=== PATIENT | female | born 1990 | race Caucasian/White ===

== ENCOUNTER 2019-10-16 07:34 | Observation (INO) | payer OTHER, SELFPAY ==
[2019-10-16] VITALS (26 sets, daily range): BP systolic 109–121; BP diastolic 71–74; PULSE 78–103; O2SAT 97–100; BMI 49.1
--- NOTE | 2019-10-16 07:52 | OBADM ---
This patient, Enma Pan, admitted to the OB room OB Post 115 for observation. Patient/family oriented to hospital policies and general routines including ID bracelet, bed and alarms, visiting hours, pain management, procedures, bathroom and other care routines, personal items, smoking policy, room service/diet, and visiting hours. Patient/Family are encouraged to report perceived risks to care and to ask questions if they do not understand what they are told or what they should do.
[2019-10-16] MEDS: BETAMETHASONE SOD PHOS/ACETATE 30 MG/5 ML VIAL 12 MG IM (08:12)
--- NOTE | 2019-10-16 08:20 | PC.NURSE ---
0756- Spoke with Dr. Khan regarding patient admission for observation for bleeding. Orders for terbutaline if needed for contractions and Celestone 12 mg IM once now, then once in 24 hours. Extended monitoring for a few hours.
[2019-10-16] MEDS: TERBUTALINE SULFATE 1 MG/ML VIAL 0.25 MG SUB-Q (09:32)
--- NOTE | 2019-10-16 11:25 | PC.NURSE ---
1125- Spoke with Dr. Khan, bleeding has stopped, patient just reporting pink discharge now. Contractions have decreased. patient to be discharged to home.
--- NOTE | 2019-10-21 16:37 | PM.OBTRLD ---
OB - Triage/Final Diagnosis Visit Information Comments/Additional reasons for admission: Vaginal bleeding
== END 2019-10-16 11:35 | disposition home or self-care (01) ==
PROVIDERS: Admitting Provider Obstetrics & Gynecology; Visit Provider Obstetrics & Gynecology
DX: O44.13 Complete placenta previa with hemorrhage, third trimester (principal); Z3A.33 33 weeks gestation of pregnancy
CPT/HCPCS: 96372; G0378; G0379; J0702; J3105

== ENCOUNTER 2019-10-17 07:50 | Outpatient (CLI) | payer OTHER, SELFPAY ==
[2019-10-17] MEDS: BETAMETHASONE SOD PHOS/ACETATE 30 MG/5 ML VIAL 12 MG IM (08:12)
== END 2019-10-17 08:15 | disposition home or self-care (01) ==
LOC: ANHOBOP 07:55 → ANHLDR 07:55
PROVIDERS: Visit Provider Obstetrics & Gynecology
DX: Z34.90 Encounter for supervision of normal pregnancy, unspecified, unspecified trimester (principal); Z3A.00 Weeks of gestation of pregnancy not specified
CPT/HCPCS: 96372; 99199; J0702

== ENCOUNTER 2019-10-19 10:33 | Observation (INO) | payer OTHER, SELFPAY ==
[2019-10-19] VITALS (9 sets, daily range): BP systolic 112–131; BP diastolic 61–68; PULSE 85–96; TEMP 36.3; BMI 47.6
--- NOTE | ~2019-10-19 | US_ITS ---
EXAMINATION: US OB limited w BPP DATE: 10/19/2019 11:44 INDICATION: Vaginal bleeding. Third trimester. TECHNIQUE: Real-time pelvic ultrasound was performed. COMPARISON: None. FINDINGS: There is a single living fetus in vertex presentation. The placenta covers the internal cervical os. heart rate is 165 beats per minute (bpm). Biophysical profile performed by the technologist: breathing (30 sec sustained breathing in 30 minutes): 2 out of 2 movement (3 gross body movements in 30 minutes): 2 out of 2 tone (one episode of ctzhduk-ehsaahtnm-anrnata limb movement): 2 out of 2 Amniotic fluid pocket (2 cm): 2 out of 2 Total score: 8 out of 8 IMPRESSION: 1. Placenta previa. 2. Single living fetus in vertex presentation. 3. Biophysical profile 8 out of 8. Reviewed, dictated and finalized at location B.
--- NOTE | 2019-10-19 11:01 | OBADM ---
This patient, Enma Pan, admitted to the OB room OB Post 115 for observation. Patient/family oriented to hospital policies and general routines including ID bracelet, bed and alarms, visiting hours, pain management, procedures, bathroom and other care routines, personal items, smoking policy, room service/diet, and visiting hours. Patient/Family are encouraged to report perceived risks to care and to ask questions if they do not understand what they are told or what they should do. Pt. reports vaginal blood noted after going to the bathroom this a.m., states she has a placenta previa and received steroids X2 doses on Wednesday and Wednesday this week. She denies any ctxns and reports movement at this time. Small amount of dark bloody mucus noted upon wiping after using the BR, will continue to monitor.
[2019-10-19] MEDS: TERBUTALINE SULFATE 1 MG/ML VIAL 0.25 MG SUB-Q (11:25)
--- NOTE | 2019-10-19 14:26 | PM.OBTRLD ---
OB - Triage/Final Diagnosis Visit Information Comments/Additional reasons for admission: 29-year-old 2 para 1001 at 34 weeks gestation presents with 2nd episode of minimal vaginal bleeding due to placenta previa this week. Her last visit she was given steroids which she repeated 24 hours later. Has had limited activity at home and had some bright red bleeding today which has resolved by the time she presented to the hospital. Did have an ultrasound which showed no placental abruption and confirming placenta previa as well as a biophysical profile which was 8/8. Patient has no other complaints or concerns at this time. Evaluation Vital signs: Vital Signs - 24 hr 10/19/19 10:43 10/19/19 10:45 10/19/19 11:01 Temperature 36.3 C L Pulse Rate 89 85 Blood Pressure 131/65 112/68 10/19/19 11:16 10/19/19 11:55 10/19/19 12:01 Temperature Pulse Rate 87 89 91 Blood Pressure 123/63 119/66 118/63 10/19/19 12:16 10/19/19 12:31 10/19/19 12:46 Temperature Pulse Rate 89 96 87 Blood Pressure 119/61 117/66 117/65 Comments: Patient will be discharged home with same precautions as previous. She has has an ultrasound scheduled for Wednesday and a follow-up appointment next week in the office. She is return for any significant bleeding and/or contractions prior to that.
--- NOTE | 2019-10-19 14:30 | PM.OBTRLD ---
OB - Triage/Final Diagnosis Visit Information Comments/Additional reasons for admission: Vaginal bleeding Evaluation Vital signs: Vital Signs - 24 hr 10/19/19 10:43 10/19/19 10:45 10/19/19 11:01 Temperature 36.3 C L Pulse Rate 89 85 Blood Pressure 131/65 112/68 10/19/19 11:16 10/19/19 11:55 10/19/19 12:01 Temperature Pulse Rate 87 89 91 Blood Pressure 123/63 119/66 118/63 10/19/19 12:16 10/19/19 12:31 10/19/19 12:46 Temperature Pulse Rate 89 96 87 Blood Pressure 119/61 117/66 117/65
== END 2019-10-19 14:46 | disposition home or self-care (01) ==
PROVIDERS: Admitting Provider Obstetrics & Gynecology; Visit Provider Obstetrics & Gynecology
DX: O44.03 Complete placenta previa NOS or without hemorrhage, third trimester (principal); O26.853 Spotting complicating pregnancy, third trimester; Z3A.34 34 weeks gestation of pregnancy
CPT/HCPCS: 76815; 76819; 96372; G0378; G0379; J3105

== ENCOUNTER 2019-10-21 18:34 | Observation (INO) | payer OTHER, SELFPAY ==
[2019-10-21 19:00] VITALS: TEMP 36.6
[2019-10-21 19:30] VITALS: BMI 47.6
--- NOTE | 2019-10-21 22:06 | LDADM ---
This patient, Enma Pan, was admitted to Labor/Delivery/Recovery 120 on 10/21/19 at 18:34. Plans for labor, pain management and were discussed with patient. Patient/family oriented to hospital policies and general routines including ID bracelet, bed and alarms, visiting hours, pain management, procedures, bathroom and other care routines, personal items, smoking policy, room service/diet and guest tray routines, security routines, and visiting hours. Patient/Family are encouraged to report perceived risks to care and to ask questions if they do not understand what they are told or what they should do. See OBIX for further documentation.
--- NOTE | 2019-10-21 22:08 | PC.NURSE ---
1833- pt c/o contractions- 4-6 in last hour. pt with current placenta previa. pt feeling baby move. no vaginal bleeding. 2014- paged Dr. Khan 2016- Dr. Khan returned page. updated on pt status. have pt take her dose of procardia 10mg now, will monitor and if no contractions felt/noted pt may d/c home. if pt continues to have contractions order received to give up to 2 doses of terbutaline if needed. if continues to have contractions call Dr. Khan for further instructions. 2024 pt took procardia 10mg po. 2129- pt not feeling contractions since taking procardia. pt wanting to d/c home.
--- NOTE | 2019-11-06 07:14 | PM.OBTRLD ---
OB - Triage/Final Diagnosis Visit Information Comments/Additional reasons for admission: Vaginal bleeding due to placenta previa (see related condition) a
== END 2019-10-21 22:05 | disposition home or self-care (01) ==
PROVIDERS: Admitting Provider Obstetrics & Gynecology; Visit Provider Obstetrics & Gynecology
DX: O44.13 Complete placenta previa with hemorrhage, third trimester (principal); Z3A.34 34 weeks gestation of pregnancy
CPT/HCPCS: G0378; G0379

== ENCOUNTER 2019-10-26 16:55 | Observation (INO) | payer OTHER, SELFPAY ==
[2019-10-26 17:22] VITALS: TEMP 36.6
[2019-10-26 18:01] VITALS: BP 112/69; PULSE 101
[2019-10-26 18:17] VITALS: BMI 47.6
--- NOTE | 2019-10-26 18:18 | OBADM ---
This patient, Enma Pan, admitted to the OB room Labor/Delivery/Recovery 120 for observation. Patient/family oriented to hospital policies and general routines including ID bracelet, bed and alarms, visiting hours, pain management, procedures, bathroom and other care routines, personal items, smoking policy, room service/diet, and visiting hours. Patient/Family are encouraged to report perceived risks to care and to ask questions if they do not understand what they are told or what they should do.
[2019-10-26] MEDS: LACTATED RINGERS 1,000 ML 999 ML IV CONT (18:37)
[2019-10-26] MEDS: LACTATED RINGERS 1,000 ML 150 ML IV CONT (19:40)
[2019-10-26] MEDS: NIFEdipine 10 MG CAPSULE PO (19:48)
--- NOTE | 2019-10-27 14:25 | PM.OBTRLD ---
OB - Triage/Final Diagnosis Evaluation Vital signs: Vital Signs - 24 hr 10/26/19 17:22 10/26/19 18:01 Temperature 36.6 C Pulse Rate 101 H Blood Pressure 112/69 Final Diagnosis (1) Vagina bleeding: Code(s): N93.9 - Abnormal uterine and vaginal bleeding, unspecified Status: Acute
== END 2019-10-26 22:30 | disposition home or self-care (01) ==
PROVIDERS: Admitting Provider Obstetrics & Gynecology; Visit Provider Obstetrics & Gynecology
DX: O26.859 Spotting complicating pregnancy, unspecified trimester (principal); Z3A.00 Weeks of gestation of pregnancy not specified
CPT/HCPCS: 96360; 96361; A9270; G0378; G0379; J7120

== ENCOUNTER 2019-10-31 16:20 | Outpatient (CLI) | payer OTHER, SELFPAY ==
[2019-10-31 17:16] LABS: Hematocrit 39.6 % (37.0-47.0); Hemoglobin 13.5 g/dL (12.0-15.0); Mean Corpuscular HGB Conc 34.1 g/dl (32-36); Mean Corpuscular Hemoglobin 29.2 pg (26-34); Mean Corpuscular Volume 85.7 fl (80-100); Mean Platelet Volume 11.8 fl (7.4-10.4); Platelet Count Result 267 k/mm3 (150-375); Red Blood Count 4.62 M/mm3 (4.2-5.4); Red Cell Distribution Width 13.2 % (11.5-14.5); White Blood Count 11.3 K/mm3 (4.5-10.0)
[2019-11-01 10:03] LABS: Rapid Plasma Reagin Non-Reactive (NonReactive)
== END 2019-10-31 16:21 | disposition home or self-care (01) ==
LOC: ANHLAB 16:22
PROVIDERS: Visit Provider Obstetrics & Gynecology
DX: Z34.93 Encounter for supervision of normal pregnancy, unspecified, third trimester (principal); Z3A.00 Weeks of gestation of pregnancy not specified
CPT/HCPCS: 36415; 85027; 86592; 86850; 86900; 86901

== ENCOUNTER 2019-11-01 09:53 | Inpatient (IN) | payer OTHER, SELFPAY ==
[2019-11-01] VITALS (54 sets, daily range): BP systolic 90–135; BP diastolic 17–84; PULSE 60–101; RESP 16–20; TEMP 36.1–36.6; O2SAT 97–100; BMI 47.7
--- NOTE | 2019-11-01 07:22 | PM.IMHP ---
H&P: HPI History of Present Illness Date/Time: 11/01/19 07:22 Chief complaint: Pre-admit Narrative: Enma Pan is a 29 year old female 3 para 2001 presents for repeat section. Also complicating this placenta previa which has caused 3 outpatient admissions in the last week due to small episodes of bleeding. Also has received steroids for lung maturation approximately 2 weeks ago. Desires permanent sterilization as well. Review of Systems Review of Systems: All systems reviewed & are unremarkable except as noted in HPI and below PMFSH Family History Family History Mother Colon cancer Social History Social History Substance use: never Gender identity (if verbalized by the patient): Female Spiritual care concerns: No Meds Home Medications and Allergies Home Medications Medication Instructions Recorded Confirmed Type Daily 1 pkg PO DAILY 10/16/19 10/26/19 History nifedipine [Procardia] 10 mg PO Q8H #30 cap 10/19/19 10/26/19 Rx Allergies Allergy/AdvReac Type Severity Reaction Status Date / Time egg AdvReac Unknown N&V Verified 10/16/19 08:00 Exam Const: General: no acute distress Resp: Auscultation: clear to auscultation bilaterally Cardio: Rate: regular rate Rhythm: regular rhythm GI: GI Palp: Yes Soft to palpation Other: Fundal height 36cm heart tones 140 Assessment and Plan Assessment and plan (1) 36 weeks gestation of : Code(s): Z3A.36 - 36 weeks gestation of Status: Acute (2) Placenta previa: Code(s): O44.00 - Complete placenta previa NOS or without hemorrhage, unspecified trimester Status: Acute (3) Encounter for female sterilization procedure: Code(s): Z30.2 - Encounter for sterilization Status: Acute Additional Plan 1. Proceed with repeat low-transverse section 2.bilateral tubal ligation
--- NOTE | 2019-11-01 07:25 | WPDHPUPDATE1 ---
History and Physical Update Update Date/Time: 11/01/19 07:25 History and Physical has been reviewed, including an updated exam of the patient. There are NO changes in the patient's condition. Risks, benefits, and alternatives have been discussed and questions answered. Patient agrees to proceed with procedure.
--- NOTE | 2019-11-01 10:47 | WPDANESEPPF ---
Anes - Initial Pre Proc Eval Procedure: Operation Date: 11/01/19 12:00 Proposed Procedures p Repeat Section With Bilateral Tubal Ligation - Carlton Khan MD Date/Time: 11/01/19 10:47 Surgeon: Carlton Khan MD Pre Op Diagnosis: C/S Patient Data Age: 29 Gender: F Height: 5 ft 3 in Weight: 122.4 kg Last Vital Signs Pulse 94 11/01/19 10:32 BP 101/65 11/01/19 10:32 Allergies Allergy/AdvReac Type Severity Reaction Status Date / Time egg AdvReac Unknown N&V Verified 10/16/19 08:00 Home Medications Medication Instructions Recorded Confirmed Type Daily 1 pkg PO DAILY 10/16/19 10/26/19 History nifedipine [Procardia] 10 mg PO Q8H #30 cap 10/19/19 10/26/19 Rx Patient hx anesthesia problems: post op nausea/vomiting Family hx anesthesia problems: none PMFSH Past Medical History Medical History (Updated 11/01/19 @ 10:47 by Trev Stephens MD) Asthma Family History Family History Mother Colon cancer Social History Social History Substance use: never Gender identity (if verbalized by the patient): Female Spiritual care concerns: No Anes - Eval Final PreProcedure Day of Procedure 11/01/19 10:47 Patient weight: morbidly obese Heart: regular rate and rhythm Lungs: clear to auscultation Airway: Mallampati scale class II Neurological: alert and oriented Last oral intake: >/= 8 hours ASA classification: III Emergent: no Anesthetic plan: proceed Anesthesia type and monitoring: regional spinal and standard monitoring Informed Consent: The patient's anesthetic plan and its attendant risks and benefits were discussed with the patient/family/POA. Questions were solicited and answers provided to the satisfaction of the patient/family/POA.
[2019-11-01] MEDS: LACTATED RINGERS 250 ML IVPB (10:57)
--- NOTE | 2019-11-01 11:12 | LDADM ---
This patient, Enma Pan, was admitted to Labor/Delivery/Recovery 119 on 11/01/19 at 09:53. Plans for labor, pain management and were discussed with patient. Patient/family oriented to hospital policies and general routines including ID bracelet, bed and alarms, visiting hours, pain management, procedures, bathroom and other care routines, personal items, smoking policy, room service/diet and guest tray routines, security routines, and visiting hours. Patient/Family are encouraged to report perceived risks to care and to ask questions if they do not understand what they are told or what they should do. See OBIX for further documentation.
[2019-11-01] MEDS: LACTATED RINGERS 1,000 ML 125 ML IV CONT (11:21)
[2019-11-01] MEDS: ceFAZolin 3 GM/D5W 100 ML 100 ML IVPB (11:21)
--- NOTE | 2019-11-01 12:51 | PM.OBPRVD ---
OB - Delivery Note Procedure Procedure: Procedures Operation Date: 11/01/19 12:00 <No data on this case meets the specified criteria> Intrapartal events: Placenta Previa Route of delivery: (with bilateral tubal ligation) Specimen: Yes (1. Placenta 2. Bilateral fallopian tubes) Estimated blood loss (mL): 1,000 Anesthesia type: Epidural Disposition: PACU Narrative: patient prepped and draped in usual manner for this procedure. Pfannenstiel incision was made which was then carried down to the fascia which was extended bilaterally the length of the skin incision. Superiorly and inferiorly dissected away from the rectus muscles which were then bluntly dissected and peritoneum was entered. Bladder flap was developed. Uterus scored with clear fluid noted. Extended bilaterally the length of the lower segment and the vertex was delivered without difficulty. Rest of baby was delivered. Placenta was manually removed. There were no fragments or clots in the uterus though there was a minor amount of bleeding from the lower segment where the placenta had been attached. Pressure was placed in this area and bilaterally the tubes were then removed by double ligated with 0 plain suture and removing the stump of tissue. Year the uterus was then closed using 0 Monocryl in a running interlocking manner with good approximation hemostasis noted. Uterus was turned to the abdomen and the tubes were noted to be intact and hemostatic and the uterine incision also intact and hemostatic. All subfascial tissue was noted be hemostatic and the fascia was approximated using 0 Vicryl suture from the left angle midline and in the right angle to midline with good approximation hemostasis noted. Subcutaneous tissue was approximated using 0 plain suture in a running manner and the skin was then approximated using wide dannie. Patient are procedure well sent to recovery room in stable condition. Baby Weeks of gestation at delivery: 36 Infant gender: Female Weight (pounds): 6 Weight (ounces): 14
[2019-11-01] MEDS: MORPHINE SULFATE 2 MG/ML INJ 3 MG IV PUSH ×2 (13:55→14:21)
[2019-11-01] MEDS: OXYTOCIN 30 UNITS/NS 500 ML 30 UNITS/500 ML BAG 125 UNITS IV CONT (14:00)
--- NOTE | 2019-11-01 15:28 | PC.NURSE ---
Patient transferred to post room 287 per stretcher. Support person present. Oriented to unit, room, information board, rooming in, admission packet and security measures. Patient verbalizes understanding.
[2019-11-01] MEDS: KETOROLAC 30 MG/ML VIAL (*BKC) IV PUSH (17:52)
[2019-11-01] MEDS: SIMETHICONE 80 MG TAB.CHEW PO (17:52)
[2019-11-02 01:54] LABS: Basophils Percent Auto 0.4 % (0.2-1.2); Eosinophils Absolute Auto 0.3 K/mm3 (0-0.3); Eosinophils Percent Auto 2.5 % (0-4.4); Hematocrit 34.3 % (37.0-47.0); Hemoglobin 11.4 g/dL (12.0-15.0); Immature Granulocyte Absolute 0.02 K/mm3 (0.00-0.031); Immature Granulocyte Percent A 0.2 % (0-0.5); Lymphocytes Absolute Auto 2.22 K/mm3 (0.9-3.2); Lymphocytes Percent Auto 22.2 % (18.3-44.2); Mean Corpuscular HGB Conc 33.2 g/dl (32-36); Mean Corpuscular Hemoglobin 28.9 pg (26-34); Mean Corpuscular Volume 87.1 fl (80-100); Mean Platelet Volume 12.1 fl (7.4-10.4); Monocytes Absolute Auto 0.7 K/mm3 (0.1-0.6); Monocytes Percent Auto 7.1 % (2.6-8.5); Neutrophils Absolute Auto 6.7 K/mm3 (1.3-6.7); Neutrophils Percent Auto 67.6 % (45.5-73.1); Platelet Count Result 224 k/mm3 (150-375); Red Blood Count 3.94 M/mm3 (4.2-5.4); Red Cell Distribution Width 13.2 % (11.5-14.5)
[2019-11-02 04:40] VITALS: BP 103/69; PULSE 80; RESP 16; TEMP 36.3; O2SAT 98
[2019-11-02] MEDS: KETOROLAC 30 MG/ML VIAL (*BKC) IV PUSH (04:59)
[2019-11-02] MEDS: ONDANSETRON INJ 4 MG/2 ML VIAL IV PUSH (06:09)
[2019-11-02 06:55] VITALS: BP 116/76; PULSE 84; RESP 18; TEMP 36.3; O2SAT 99
--- NOTE | 2019-11-02 08:44 | P.DS_ITS ---
DS: Admitting Diagnosis Admitting Diagnosis Admitting Diagnosis: C/S OB - DS: Summary OB Procedures : None OB Procedures Intrapartum: and Tubal ligation OB Procedures: : None Peripartum Data Procedures: Procedures Operation Date: 11/01/19 12:00 Actual Procedures Side Surgeon p Section Carlton Khan MD Time Spent with Patient Time attestation: Total time spent providing and/or coordinating discharge services: DS: Data Data Completed and Pending Pending studies at discharge: Pending at discharge 11/01/19 13:06 Surgical [PTH] Routine Labs on day of discharge: Labs from last 24 hours 11/02/19 01:46 WBC 10.0 RBC 3.94 L Hgb 11.4 L Hct 34.3 L MCV 87.1 MCH 28.9 MCHC 33.2 RDW 13.2 Plt Count 224 MPV 12.1 H Immature Gran % (Auto) 0.2 Neut % (Auto) 67.6 Lymph % (Auto) 22.2 [place] % (Auto) 7.1 Eos % (Auto) 2.5 Baso % (Auto) 0.4 Lymph # (Auto) 2.22 [place] # (Auto) 0.7 H Eos # (Auto) 0.3 Baso # (Auto) 0.0 Abs Immat Gran (auto) 0.02 Absolute Neuts (auto) 6.7 Absolute Nucleated RBC 0.0 Nucleated RBC % 0.0 Discharge Plan Discharge Discharging Clinician: Carlton Khan Patient Disposition: Home, Self-Care Activity: as tolerated Diet: as tolerated Wound Care Instructions: incision open to air Discharge Instructions: office wednesday/wednesday for staple removal Patient Instructions: Antibiotic Form Stand Alone Forms: General Discharge Information Follow-up/Referrals: Carlton Khan MD [Physician] - 3 Weeks Discharge Medications: New hydrocodone-acetaminophen 5-325 mg Tablet 1 tab PO Q3H PRN (Reason: Moderate Pain (4-6)) Qty: 30 RF: 0 ibuprofen 600 mg Tablet 600 mg PO Q6H PRN (Reason: Cramping) Qty: 30 RF: 0 Continued Daily 28-800-440 mg-mcg-mg Combo Pack 1 pkg PO DAILY RF: 0 Date of admission: 11/01/19 09:53 Primary Care Provider: PHYSICIAN,DOUBLE END CHUCKING MACHINE OPERATOR Admitting Provider: Carlton Khan Attending physician on admission: Carlton Khan
[2019-11-02] MEDS: SIMETHICONE 80 MG TAB.CHEW PO ×2 (09:04→17:05)
[2019-11-02] MEDS: MULTIVIT/MIN/PREN/FOL AC/IRON TABLET 1 TAB PO (09:04)
--- NOTE | 2019-11-02 09:34 | WPDANLDPN2 ---
Anes-Prog Note L&D Date/Time: 11/02/19 09:34 Comfortable throughout: section Neuraxial method: spinal Epidural/Spinal procedure site: clean & non-tender Neuro status: Neuro function grossly intact. Cardiovascular status: normal Respiratory status: normal Airway patency: baseline Mental status: baseline Post-Op hydration status: normal Vital Signs: Last Vital Signs Temp 36.3 C L 11/02/19 06:55 Pulse 84 11/02/19 06:55 Resp 18 11/02/19 06:55 BP 116/76 11/02/19 06:55 Pulse Ox 99 11/02/19 06:55 Pain score (VAS): 0/10 I/O: Intake & Output 11/01/19 11/02/19 11/02/19 23:59 07:59 15:59 Intake Total 200 Output Total 300 Balance -100 Post-procedural complaints: none Patient feedback: Patient satisfied with anesthetic care.
--- NOTE | 2019-11-02 09:34 | WPDANLDNPN2 ---
Anes-Prog Note L&D-Neuraxial Date/Time: 11/02/19 09:34 Neuraxial medications: intrathecal PF morphine Opiod-related complaints: none Patient feedback: Patient satisfied with post-operative pain management.
--- NOTE | 2019-11-02 11:05 | PC.NURSE ---
Consult with pt.,mother states she is pumping due to transfer. Mother has three bottles with a few mls each to take to infant. Assured mother drops with each session are normal at this time. Reviewed instructions given on breast pump care and usage, pumping schedule, nipple care, and collection and storage of breast milk. Encouraged [id number] as available, breast massage and manual expression to stimulate supply. Patient verbalizes and demonstrates understanding of instructions.
--- NOTE | 2019-11-02 11:20 | PC.NURSE ---
Pt. to [facility] to see infant with at side. Explained 6 hr. pass to pt. No questions or concerns verbalized.
[2019-11-02 11:25] VITALS: BP 110/70; PULSE 86; RESP 20; TEMP 36.8
[2019-11-02] MEDS: IBUPROFEN 600 MG TABLET PO ×2 (11:30→17:04)
--- NOTE | 2019-11-02 17:46 | PC.NURSE ---
Addendum entered by Mariana Romero RN 11/02/19 17:48: Pt. returned to hospital at 1645. Original Note: Pt. returned from visit at [facility]. at side. Very happy and excited that infant doing well.
[2019-11-02] MEDS: TETANUS,DIPHTHERIA,AC PERTUSSIS ADULT (0.5 ML) BOOSTRIX IM (19:53)
[2019-11-02 20:00] VITALS: BP 122/76; PULSE 74; RESP 16; TEMP 36.9; O2SAT 100
[2019-11-03] MEDS: SIMETHICONE 80 MG TAB.CHEW PO (01:17)
[2019-11-03] MEDS: IBUPROFEN 600 MG TABLET PO ×2 (01:17→08:46)
--- NOTE | 2019-11-03 08:30 | PC.NURSE ---
Consult with pt., mother is concerned she is pumping regularly with small amounts each session. Assured mother this is normal to continue with pumping 15 minutes every three hours, milk should transition in within a few days. Mother has a double electric pump for home use.
[2019-11-03 08:35] VITALS: BP 130/78; PULSE 80; RESP 18; TEMP 35.9; O2SAT 100
[2019-11-03] MEDS: MULTIVIT/MIN/PREN/FOL AC/IRON TABLET 1 TAB PO (08:46)
--- NOTE | 2019-11-03 08:50 | PC.NURSE ---
Pt to been seen in the office on Wednesday or Wednesday of next week for staple removal so pt declines hospital follow up appointment on Wednesday.
--- NOTE | 2019-11-03 10:25 | PC.NURSE ---
Patient received instructions to view the discharge video Mother & Baby Care, The First Two Weeks . Patient was given the opportunity and encouraged to ask questions. Patient verbalized understanding of information shared and has been given the mother/baby guide for home reference.
--- NOTE | 2019-11-04 08:06 | PM.OBDSVD ---
DS: Admitting Diagnosis Admitting Diagnosis Admitting Diagnosis: C/S OB - DS: Summary OB Procedures : None OB Procedures Intrapartum: and Tubal ligation OB Procedures: : None Peripartum Data Procedures: Procedures Operation Date: 11/01/19 12:00 Actual Procedures Side Surgeon p Section Carlton Khan MD Time Spent with Patient Time attestation: Total time spent providing and/or coordinating discharge services: DS: Data Data Completed and Pending Pending studies at discharge: Pending at discharge 11/01/19 13:06 Surgical [PTH] Routine Discharge Plan Discharge Consulting providers: Trev Stephens Discharging Clinician: Carlton Khan Patient Disposition: Home, Self-Care Activity: as tolerated Diet: as tolerated Wound Care Instructions: incision open to air Discharge Instructions: office wednesday/wednesday for staple removal Education: Mom and Baby Guide and Preeclampsia Handout Given to: Mother Follow-Up: Call your delivering provider's office for an appointment to be seen in: 3 weeks BREAST CARE: * Wear a snug supportive bra. * For engorgement discomfort: Breast Feeding: * Apply warm moist washcloths * Express milk as needed to relieve engorgement * Wear loose clothing * For sore nipples: * Identify correct latch-on * Apply warm moist washcloths before and after nursing * Air dry nipples after nursing * May apply Lansinoh cream to nipples ABDOMINAL INCISION: (if applicable) * Allow incision to air dry * Do NOT use lotions for powders on your incision * When showering, allow soap and water to run over the incision, but do not wash incision EPISIOTOMY/PERINEAL CARE: * Until bleeding stops, use your malick bottle after urinating * Change your pad frequently throughout the day * No tub baths until seen by your physician - You may shower ACTIVITY: * Rest as much as possible. * Do not exercise or lift anything heavier than your baby (such as laundry or other children.) * Avoid stairs or driving as much as possible. * Do not put anything into the vagina. No douching, tampons, or sexual activity until seen by physician. NOTIFY PHYSICIAN IF YOU HAVE ANY QUESTIONS OR IF ANY OF THE FOLLOWING SYMPTOMS OCCUR: * If your incision becomes red, swollen, or more painful than what you have experienced in the hospital. * If your vaginal bleeding becomes foul smelling. * If your vaginal bleeding becomes more heavy than a period or if your bleeding changes from pink to bright red. However, you may pass an occasional walnut-sized clot once or twice for the first week . * If you experience a sharp, shooting pain in you calves. * If you discover a hard, reddened area on your breast or if you experience flu-like symptoms. DIET: * Eat regular, well-balanced meals. * Drink plenty of fluids daily. If , drink to thirst. Stand Alone Forms: General Discharge Information Follow-up/Referrals: Carlton Khan MD [Physician] - 3 Weeks Discharge Medications: New hydrocodone-acetaminophen 5-325 mg Tablet 1 tab PO Q3H PRN (Reason: Moderate Pain (4-6)) Qty: 30 RF: 0 ibuprofen 600 mg Tablet 600 mg PO Q6H PRN (Reason: Cramping) Qty: 30 RF: 0 Continued Daily 28-800-440 mg-mcg-mg Combo Pack 1 pkg PO DAILY RF: 0 Date of admission: 11/01/19 09:53 Primary Care Provider: PHYSICIAN,ARCH PAD CEMENTER Admitting Provider: Carlton Khan Discharge Date/Time: 11/03/19 10:52 Attending physician on admission: Carlton Khan
== END 2019-11-03 10:52 | disposition home or self-care (01) | DRG 540 ==
LOC: ANHLDR 09:58 → ANHOB2 15:37
PROVIDERS: Admitting Provider Obstetrics & Gynecology; Visit Provider Obstetrics & Gynecology
PROC: 10D00Z1 Extraction of Products of Conception, Low, Open Approach (ICD-10-PCS; CPT 59514; principal; 2019-11-01 12:00)
DX: O44.13 Complete placenta previa with hemorrhage, third trimester (principal); Z37.0 Single live birth; Z3A.36 36 weeks gestation of pregnancy; Z30.2 Encounter for sterilization; Z23 Encounter for immunization; O99.52 Diseases of the respiratory system complicating childbirth; J45.909 Unspecified asthma, uncomplicated; O99.214 Obesity complicating childbirth; E66.01 Morbid (severe) obesity due to excess calories
CPT/HCPCS: 36415; 85025; 87635; 88302; 88307; 90471; 90686; 90715; A9270; C9803; G0008; J0131; J0690; J1885; J2270; J2274; J2405; J2590; J7120; U0003

== ENCOUNTER 2022-04-07 16:37 | Outpatient (CLI) | payer OTHER, SELFPAY ==
[2022-04-07 16:56] LABS: Hematocrit 37.3 % (37.0-47.0); Hemoglobin 11.9 g/dL (12.0-15.0)
== END 2022-04-07 16:38 | disposition home or self-care (01) ==
LOC: ANHLAB 16:38
PROVIDERS: Visit Provider Student in an Organized Health Care Education/Training Program
DX: N93.9 Abnormal uterine and vaginal bleeding, unspecified (principal); Z01.818 Encounter for other preprocedural examination
CPT/HCPCS: 36415; 85014; 85018

== ENCOUNTER 2022-04-09 01:10 | Day surgery (SDC) | payer OTHER, SELFPAY ==
[2022-03-27 09:46] VITALS: BMI 49.6
--- NOTE | 2022-03-27 09:50 | PC.NURSE ---
Report to the Outpatient Waiting Room, entrance under the green pavilion located off [facility], at time 10:00 on date 04/09/22. Planned Procedure Time: 12:00. Time changes happen often and if your time is changed the preop area will call you the afternoon before. - You and your visitor will be asked to self-screen and do not enter if you have any COVID symptoms. - Only one visitor is requested with a max of two and NO children visitors are allowed at this time. - The patient visitor may be requested to leave or wait in car when not with patient due to distancing restrictions. - A mask is optional within the hospital at this time. Patients may have clear liquids (water, carbonated beverages, clear teas, apple juice) until 3 hours prior to surgery (9:00) with a maximum of 20 ounces. - No food from midnight until time of surgery Take the following medications with a SIP of water the morning of surgery: NONE DO NOT STOP ANY OF YOUR OTHER PRESCRIPTION MEDICATIONS PRIOR TO SURGERY EXCEPT THE FOLLOWING Medications to discontinue per physician: N/A Date to take last dose: N/A Please no make-up, nail telugu, hairspray, perfume, deodorant, or body powder the day of surgery. No jewelry (including any body piercings) or valuables the day of surgery, leave them at home. Please take a shower or bath the night before, or the morning of, surgery with an antibacterial soap. Wear comfortable, loose fitting clothing. - Jewelry must be removed prior to entering the operating room. Rings and piercings that are not removed may be cut off. - The hospital will not accept responsibility for valuables. - Please leave all valuables, including medications, at home the day of surgery. If you are going home after surgery, a licensed long haul truck driver must drive you home. - NO public transportation without another adult if you receive anesthesia. - We recommend that an adult stay with you for 24 hours following discharge. - We also recommend that you do not drive, make important decision, drink alcoholic beverages, or take any drugs that were not prescribed by your health care provider for at least 24 hours after your discharge time. Follow any additional instructions given to you from your surgeon. If you or anyone in your household have experienced Covid symptoms in the past week, please notify your surgeon or the nurse liaison at the phone number below for possible testing. Telephone instructions given to PT - GRETCHEN NGUYỄN and asked if any additional questions and then verbalized understanding. Patient advised to call surgeon office or pre surgery nurse liaison [phone] if any additional questions.
--- NOTE | 2022-04-09 08:46 | PM.IMHP ---
H&P: HPI History of Present Illness Date/Time: 04/09/22 08:46 Chief Complaint: abnormal uterine bleeding Narrative: 31-year-old female who presents for hysteroscopy, D&C, endometrial ablation for abnormal uterine bleeding. Patient complaining of heavy prolonged menses for several years. Patient has tried hormonal contraceptives in the past. Patient declined intrauterine device. Patient is status post tubal ligation. Patient would like to proceed with endometrial ablation. Review of Systems Cardiovascular: Cardiovascular: Denies chest pain, Denies leg edema, Denies palpitations, Denies dyspnea and Denies dyspnea on exertion Respiratory: Respiratory: Denies cough, Denies dyspnea and Denies dyspnea on exertion Gastrointestinal: Gastrointestinal: Denies abdominal pain, Denies constipation, Denies diarrhea, Denies nausea and Denies vomiting Genitourinary: Genitourinary: Denies hematuria, Denies urinary frequency, Denies dysuria, Denies pelvic pain, Denies urinary incontinence and Denies vaginal discharge Neurologic: Reports system reviewed and no additional complaints, except as documented Psychiatric: Psychiatric: Reports no additional psychiatric complaints Endocrine: Endocrine: Denies palpitations PMFSH Past Medical History Medical History Asthma Surgical History Surgical History H/O dilation and curettage H/O tubal ligation History of delivery 3 Family History Family History Mother Colon cancer Grandparent Breast cancer Malignant neoplasm of cervix Social History Social History Smoking packs per day: 0.5 Smoking cigarettes per day: 10.0 Years smoked: 4 Smoking pack-years: 2.00 Smoking status: Former smoker Tobacco type: cigarettes Smoking end date: 02/22/17 Alcohol intake: current Alcohol use details: RARE Substance use: never Substance use type: does not use Living arrangements: with family Gender identity (if verbalized by the patient): Female Sexual Orientation (if Verbalized by the Patient): Straight or Heterosexual Spiritual care concerns: No Meds Home Medications and Allergies Home Medications Medication Instructions Recorded Confirmed Type cetirizine 10 mg tablet 10 mg PO DAILY 03/27/22 03/27/22 History montelukast 10 mg tablet 10 mg PO DAILY 03/27/22 03/27/22 History Allergies Allergy/AdvReac Type Severity Reaction Status Date / Time egg AdvReac Unknown N&V Verified 03/27/22 09:45 Exam Const: General: no acute distress Eyes: EOM: EOMs intact bilaterally Neck: Neck: supple Thyroid: thyroid normal Chest: Breast/axilla inspection: normal inspection of the breasts Breast/axilla palpation: normal palpation of the breasts, normal palpation of the axillae and no axillary lymphadenopathy Resp: Effort & Inspection: normal respiratory effort Auscultation: clear to auscultation bilaterally Cardio: Rate: regular rate Rhythm: regular rhythm GI: Inspection: non-distended GI Palp: Yes Soft to palpation, No Tenderness to palpation present (GI) and No Guarding due to palpation present (GI) Auscultation: normal bowel sounds : General: No bladder normal to palpation External Female Exam: normal external appearance Speculum Exam - Vagina: normal vaginal discharge and No vaginal bleeding Speculum Exam - Cervix: nontender Bimanual exam- vagina & uterus: No bladder normal to palpation and No Cervical tenderness present OB/external & speculum: No vaginal bleeding Skin: General skin exam: normal color and no rashes or lesions noted Neuro: Cognition (Neuro): normal cognition Speech: normal speech Extrem: General: normal to inspection and no edema Psych: Mental Status: mental status grossly normal Affect: normal affect
--- NOTE | 2022-04-09 08:48 | WPDHPUPDATE1 ---
History and Physical Update Update Date/Time: 04/09/22 08:48 History and Physical has been reviewed, including an updated exam of the patient. There are NO changes in the patient's condition. Risks, benefits, and alternatives have been discussed and questions answered. Patient agrees to proceed with procedure.
[2022-04-09 10:39] VITALS: BP 143/89; PULSE 96; RESP 16; TEMP 37.4; O2SAT 98
[2022-04-09] MEDS: LACTATED RINGERS 1,000 ML 30 ML IV CONT (10:44)
[2022-04-09] MEDS: ACETAMINOPHEN 500 MG TABLET 1000 MG PO (10:44)
--- NOTE | 2022-04-09 11:43 | P.PNAN_ITS ---
Anes - Initial Pre Proc Eval Procedure: Operation Date: 04/09/22 12:00 Proposed Procedures p Hysteroscopy Dilation and Curettage, Martine Endometrial Ablation - Eric Wright MD Date/Time: 04/09/22 11:43 Surgeon: Eric Wright MD Pre Op Diagnosis: abnormal uterine bleeding Patient Data Age: 31 Gender: F Height: 1.6 m Weight: 135 kg Last Vital Signs Temp 99.3 F 04/09/22 10:39 Pulse 96 04/09/22 10:39 Resp 16 04/09/22 10:39 BP 143/89 H 04/09/22 10:39 Pulse Ox 98 04/09/22 10:39 O2 Del Method Room Air 04/09/22 10:39 Allergies Allergy/AdvReac Type Severity Reaction Status Date / Time egg AdvReac Unknown N&V Verified 04/09/22 10:38 Home Medications Medication Instructions Recorded Confirmed Type cetirizine 10 mg tablet 10 mg PO DAILY 03/27/22 03/27/22 History montelukast 10 mg tablet 10 mg PO DAILY 03/27/22 03/27/22 History Patient hx anesthesia problems: none Family hx anesthesia problems: none Results Review: All pre-operative results and documents have been reviewed as part of the pre- operative evaluation. [facility] Past Medical History Medical History Asthma Surgical History Surgical History H/O dilation and curettage H/O tubal ligation History of delivery 3 Family History Family History Mother Colon cancer Grandparent Breast cancer Malignant neoplasm of cervix Social History Social History Smoking packs per day: 0.5 Smoking cigarettes per day: 10.0 Years smoked: 4 Smoking pack-years: 2.00 Smoking status: Former smoker Tobacco type: cigarettes Smoking end date: 02/22/17 Alcohol intake: current Alcohol use details: RARE Substance use: never Substance use type: does not use Living arrangements: with family Gender identity (if verbalized by the patient): Female Sexual Orientation (if Verbalized by the Patient): Straight or Heterosexual Spiritual care concerns: No Anes - Eval Final PreProcedure Day of Procedure 04/09/22 11:43 Patient weight: super morbidly obese Heart: regular rate and rhythm Lungs: clear to auscultation Airway: Mallampati scale class II Neurological: alert and oriented Last oral intake: >/= 8 hours ASA classification: III Emergent: no Anesthetic plan: proceed Anesthesia type and monitoring: general GIVS (may use LMA) and standard monitoring Results Review: All pre-operative results and documents have been reviewed as part of the pre- operative evaluation. Informed Consent: The patient's anesthetic plan and its attendant risks and benefits were di scussed with the patient/family/POA. Questions were solicited and answers provided to the satisfaction of the patient/family/POA.
[2022-04-09] MEDS: LIDOCAINE HCL 1% LOCAL INJ 20 ML VIAL INFILTRATE (12:08)
--- NOTE | 2022-04-09 12:37 | W.PM.PROC2 ---
Procedure Note - Detailed Date of Procedure 04/09/22 Pre-op Diagnosis abnormal uterine bleeding Post-op Diagnosis Same Procedure Performed paracervical block hysteroscopy dilation & curettage endometrial ablation Surgeon Eric Wright MD Anesthesia General Indications abnormal uterine bleeding Findings normal appearing intrauterine cavity. Normal tubal ostia bilaterally Description of Procedure Enma Razo presents for the above procedure due to AUB. She was counseled as to the indications, risks, benefits, and alternatives to surgery, with the risks including bleeding, infection, damage to surrounding organs, VTE, and complications of anesthesia. Her verbal and written consent was obtained. PROCEDURE: The patient was taken to the OR and general anesthesia induced. She was prepped and draped in Alex stirrups with support of the back and bilateral lower extremities. I/O catheterization performed of the bladder. The above findings were noted. Infiltration with 1% lidocaine at the 3 and 9 o'clock cervical positions was performed. A single tooth tenaculum was placed on the anterior lip of the cervix. The uterus sounded to 9 cm. The cervix was dilated with sequential Jeanie dilators. Hysteroscopy, using a normal saline medium, was performed and showed the above findings. Sharp uterine curettage was then performed and tissue placed on Telfa. The Martine device was set to a depth of 6.5 cm. The device was inserted into the uterus and deployed. Good fit was reassured by the device indicator. The cervical balloon was insufflated to ensure a good seal. Uterine integrity test was performed by the Martine device and was successful. The device was then activated. The entire ablation procedure lasted 120 seconds. The cervical balloon was desufflated and the device was removed from the uterus. The hysteroscope was re-introduced to ensure adequate tissue ablation. The tenaculum was removed and hemostasis was observed. The patient tolerated the procedure well. Sponge, lap, and needle counts were correct. The patient was taken to the recovery room in stable condition. Estimated Blood Loss 5 Drains No Packing No Pathology Yes (endometrial curettings ) Complications No immediate complications Condition Stable Disposition PACU [facility] Billing Surgery - Charge Forward: Surgery Billing
[2022-04-09 12:41] VITALS: BP 128/81; PULSE 86; RESP 12; O2SAT 99
[2022-04-09] MEDS: KETOROLAC 30 MG/ML VIAL (*BKC) IV PUSH (12:49)
[2022-04-09] MEDS: ONDANSETRON INJ 4 MG/2 ML VIAL IV PUSH (13:09)
[2022-04-09 13:10] VITALS: BP 126/78; PULSE 73; RESP 14; O2SAT 100
[2022-04-09 13:41] VITALS: BP 110/74; PULSE 71; RESP 15
[2022-04-09 13:50] VITALS: BP 117/81; PULSE 80; RESP 14
== END 2022-04-09 13:55 | disposition home or self-care (01) ==
PROVIDERS: Visit Provider Student in an Organized Health Care Education/Training Program
PROC: 0U5B8ZZ Destruction of Endometrium, Via Natural or Artificial Opening Endoscopic (ICD-10-PCS; CPT 58563; principal; 2022-04-09 12:00)
DX: N93.9 Abnormal uterine and vaginal bleeding, unspecified (principal); J45.909 Unspecified asthma, uncomplicated; Z87.891 Personal history of nicotine dependence; E66.01 Morbid (severe) obesity due to excess calories; Z68.43 Body mass index [BMI] 50.0-59.9, adult
CPT/HCPCS: 58563; 88305; A9270; J1885; J2250; J2405; J2704; J3010; J7120

== ENCOUNTER 2022-05-05 09:04 | Outpatient (CLI) | payer OTHER, SELFPAY ==
[2022-05-05 10:32] LABS: Basophils Absolute Auto 0.1 K/mm3 (0.0-0.1); Basophils Percent Auto 0.7 % (0.2-1.2); Eosinophils Absolute Auto 0.8 K/mm3 (0-0.3); Eosinophils Percent Auto 9.6 % (0-4.4); Hematocrit 37.7 % (37.0-47.0); Hemoglobin 12.3 g/dL (12.0-15.0); Immature Granulocyte Absolute 0.03 K/mm3 (0.00-0.031); Immature Granulocyte Percent A 0.4 % (0-0.5); Lymphocytes Percent Auto 23.7 % (18.3-44.2); Mean Corpuscular HGB Conc 32.6 g/dl (32-36); Mean Corpuscular Hemoglobin 25.9 pg (26-34); Mean Corpuscular Volume 79.5 fl (80-100); Mean Platelet Volume 11.9 fl (7.4-10.4); Monocytes Absolute Auto 0.5 K/mm3 (0.1-0.6); Monocytes Percent Auto 5.8 % (2.6-8.5); Neutrophils Absolute Auto 5.1 K/mm3 (1.3-6.7); Neutrophils Percent Auto 59.8 % (45.5-73.1); Platelet Count Result 268 k/mm3 (150-375); Red Blood Count 4.74 M/mm3 (4.2-5.4); Red Cell Distribution Width 13.6 % (11.5-14.5); White Blood Count 8.5 K/mm3 (4.5-10.0)
--- NOTE | 2022-05-05 10:34 | ECG_ITS ---
Measurements Intervals [place] Rate: 74 P: 28 SD: 127 QRS: 45 QRSD: 88 T: 30 QT: 393 QTc: 437 Interpretive Statements SINUS RHYTHM WITH SINUS ARRHYTHMIA BORDERLINE T WAVE ABNORMALITY- ANTERIOR LEADS BASELINE WANDER- V6 BORDERLINE ECG NO PREVIOUS ECG AVAILABLE FOR COMPARISON Electronically Signed On 05-05-2022 11:28:55 CDT by Mahesh Whitehead D.O.
[2022-05-05 10:45] LABS: Alanine Aminotransferase 35 U/L (6-35); Albumin Level 4.7 g/dL (3.5-5.1); Alkaline Phosphatase 70 U/L (38-126); Anion Gap 7 mmol/L (8-16); Aspartate Amino Transferase 30 U/L (14-36); Bilirubin,Total 0.9 mg/dL (0.2-1.3); Blood Urea Nitrogen 7 mg/dL (7-17); Calcium 9.1 mg/dL (8.4-10.2); Carbon Dioxide 25 mmol/L (22-30); Chloride 106 mmol/L (98-107); Cholesterol 143 mg/dL (0-200); Estimated Glomerular Filt Rate > 60; Glucose 93 mg/dL (65-110); HDL Direct 50 mg/dL; Potassium 4.1 mmol/L (3.4-5.0); Sodium 138 mmol/L (137-145); Triglycerides 81 mg/dL (<150)
[2022-05-05 10:47] LABS: Hemoglobin A1C 5.2 % (<5.7)
[2022-05-05 10:50] LABS: Iron 55 ug/dL (37-170)
[2022-05-05 10:55] LABS: Parathyroid Intact 61.4 pg/mL (7.5-53.5)
[2022-05-05 10:59] LABS: LDL Cholesterol Direct 77 mg/dL; Percent Iron Saturation 13 % (20-50)
[2022-05-05 11:07] LABS: Vitamin D 25 Hydroxy 33.7 ng/mL
[2022-05-08 18:18] LABS: H pylori, Urea Breath NOT DETECTED (NOT DETECTED)
== END 2022-05-05 09:05 | disposition home or self-care (01) ==
PROVIDERS: Visit Provider Nurse Practitioner Adult Health
DX: E66.01 Morbid (severe) obesity due to excess calories (principal); Z68.43 Body mass index [BMI] 50.0-59.9, adult; M54.50 Low back pain, unspecified; R94.31 Abnormal electrocardiogram [ECG] [EKG]
CPT/HCPCS: 36415; 80053; 80061; 82306; 82607; 82728; 83013; 83036; 83540; 83550; 83970; 84443; 85025; 93005